=== PATIENT | male | born 1960 | race Caucasian/White ===

== ENCOUNTER → 2020-02-07 | Outpatient (CLI) | payer BC ==
[~2020-02-07] MED LIST: AMLO10TA8 PO; ASPI-630 PO; FENO134C PO; FEXO60TA10 PO; ICOS1CAP PO; LOSA100T14 PO; MULT-735 PO; OMEP40CA45 PO; OXYCOD/APAP PO; SIMV40TA18 PO; VERA240C2 PO
== END | disposition home or self-care (01) ==
LOC: LAB 13:53
PROVIDERS: ATTEND Surgery
DX: Z01.818 Encounter for other preprocedural examination (principal); Z11.59 Encounter for screening for other viral diseases; K40.20 Bilateral inguinal hernia, without obstruction or gangrene, not specified as recurrent
CPT/HCPCS: U0003-CS

== ENCOUNTER 2020-02-11 08:34 | Day surgery (SDC) | payer BC ==
[~2020-02-11] VITALS: Ht 175.3 cm; Wt 83.5 kg
[~2020-02-11 08:34] MED LIST changes: +BUPIVACAINE-EPI 0.25%-1:200000 MPF 30 ML VIAL. ONE; +DEXAMETHASONE SOD PHOS 4 MG/ML VIAL ONE; +HYDROmorphone 2 MG/ML VIAL IV PRN; +LIDOCAINE 1% PF 2 ML VIAL. ID PRN; +LIDOCAINE 2% PF 5 ML VIAL. ONE; +MINERAL OIL for SURGERY 10 ML VIAL. MC ONE; +MORPHINE SULFATE 2 MG/ML VIAL. IV PRN; +ONDANSETRON PF 4 MG/2 ML VIAL. IV PRN; +ONDANSETRON PF 4 MG/2 ML VIAL. ONE; +PROCHLORPERAZINE 10 MG/2 ML VIAL. IV PRN; +PROPOFOL 10 MG/ML (20ML) VIAL. IV ONE; +ROCURONIUM 50 MG/5 ML VIAL. ONE; +SUCCINYLCHOLINE 200 MG/10 ML VIAL. ONE; +fentaNYL PF VIAL 100 MCG/2 ML VIAL IV PRN
[2020-02-11] MEDS ORDERED: MIDAZOLAM HCL/PF 2 MG/2 ML VIAL. ONE (08:55)
[2020-02-11] MEDS ORDERED: fentaNYL PF VIAL 100 MCG/2 ML VIAL ONE (08:55)
[2020-02-11] MEDS ORDERED: ACETAMINOPHEN 500 MG TABLET PO ONE (09:00)
[2020-02-11] MEDS ORDERED: ceFAZolin 2GM PREMIX 2 GM/50 ML BAG IV ONE (09:00)
[2020-02-11] MEDS: IV RINGERS,LACTATED 1000ML 1,000 ML IV SCH ×2 (09:07→12:13)
[2020-02-11] MEDS ORDERED: DEXAMETHASONE SOD PHOS 4 MG/ML VIAL ONE ×2 (10:33→11:38)
[2020-02-11] MEDS ORDERED: ONDANSETRON PF 4 MG/2 ML VIAL. ONE ×2 (10:33→11:38)
[2020-02-11] MEDS ORDERED: KETOROLAC 30 MG/ML VIAL. ONE (11:33)
[2020-02-11] MEDS ORDERED: NEOSTIGMINE METHYLSULFATE 5 MG/5 ML SYRINGE. ONE (11:33)
[2020-02-11] MEDS ORDERED: GLYCOPYRROLATE 1 MG/5 ML VIAL. ONE (11:33)
--- NOTE | 2020-02-11 11:35 | PDOC4 ---
Operative Note Operative Note Date: February 11, 2020 at 1132 Preoperative diagnosis: Bilateral inguinal hernias Postoperative diagnosis: Same Procedure: Robotic assisted laparoscopic bilateral inguinal hernia repair with mesh Surgeon: Anoop Specimen: None Dictation: Patient is a 59-year-old gentleman is complained of left groin pain with a bulge on physical exam he also has a defect in the right groin in addition to the left groin. Procedure of bilateral inguinal hernia repairs robotic assisted laparoscopic was explained to the patient detail risk-benefit were also discussed including bleeding infection injury to intra-abdominal contents possibly necessitating further or open operations alternatives to this procedure also discussed with the patient who seemed to understand and gave both verbal and written consent to have the procedure performed. Patient was taken to the operating room placed in supine position general anesthesia was initiated once patient was sleeping intubated is placed in low lithotomy positioning and his abdomen was prepped and draped usual sterile fashion using ChloraPrep. Area just above the umbilicus was injected with quarter percent Marcaine with epinephrine incision was made with 11 blade scalpel and a varies needle was placed within the abdomen creating pneumoperitoneum once this complete 8 mm da Kiya port was placed and the camera was placed within the abdomen which was inspected was noted that the left inguinal hernia was quite a bit bigger than the than the right inguinal hernia. At this point a 8 mm da Kiya port was placed in the right midabdomen and one in the left mid abdomen. The da Kiya robot was brought and docked all port sites Endo Cedric scissors and grasper were placed the surgeon went to the robotic console using a grasper and Endo Cedric scissors the peritoneum was incised over the left groin area. Window was propagated the peritoneum reducing the hernia sac and contents and a direct inguinal hernia similarly on the right side the peritoneum was incised and a window was propagated inferiorly reducing the hernia sac and contents also a direct inguinal hernia. Bard 3D max mesh for right and left side were placed inside the abdomen these were placed over the groin area covering the direct defects. Peritoneum was then closed over each mesh with a running 2 OV lock absorbable suture. Once this was complete the da Kiya robot was undocked from all port sites pneumoperitoneum was reduced all ports were removed the port sites were all closed with 4 subcuticular Monocryl Mastisol Steri-Strips and island dressings were applied. Patient was awakened and extubated in the operating room taken to recovery in stable condition all sponge instrument needle counts listed as correct estimated blood loss 5 mL SAGE VAUGHAN MD Feb 11, 2020 11:35
--- NOTE | 2020-02-11 11:37 | DISCH ---
DISCHARGE INSTRUCTIONS Condition on Discharge Condition on Discharge: Stable Activity After Discharge Activity Instructions for Disc: Avoid exertion Other activity instructions: No lifting more than 20 pounds for 2 weeks Diet after Discharge Diet after Discharge: Regular Wound Incision Care Other wound/incision instructi: May shower in 24 hours Contacting the [facility] after DC Call your doctor for: If your condition worsens Follow-Up Follow up with: Dr. Vaughan in 2 weeks SAGE VAUGHAN MD Feb 11, 2020 11:37
[2020-02-11] MEDS ORDERED: SEVOFLURANE 61 TO 120 MINUTES. IH ONE (11:38)
[2020-02-11] MEDS ORDERED: hydrALAZINE 20 MG/ML VIAL. IVP PRN (12:00)
[2020-02-11] MEDS ORDERED: oxyCODONE/APAP 5/325 1 TAB TABLET PO ONE ×2 (12:00)
[2020-02-11] MEDS ORDERED: OXYC-325 PO (12:20)
[2020-02-11 13:18] VITALS: BP 147/89
== END 2020-02-11 14:02 | disposition home or self-care (01) ==
LOC: SURG 08:34
PROVIDERS: ATTEND Surgery
DX: K40.20 Bilateral inguinal hernia, without obstruction or gangrene, not specified as recurrent (principal); I10 Essential (primary) hypertension; Z87.01 Personal history of pneumonia (recurrent); Z87.39 Personal history of other diseases of the musculoskeletal system and connective tissue; Z96.643 Presence of artificial hip joint, bilateral
CPT/HCPCS: 49650; A7015; C1781; J0330; J0360; J0690; J1100; J1885; J2250; J2405; J2704; J2710; J3010; J3490